=== PATIENT | male | born 1970 | race Caucasian/White ===

== ENCOUNTER 2019-02-17 23:52 | Emergency (ER) | payer BC ==
[2019-02-18 01:12] LABS: ABSOLUTE BASOPHILS # (AUTO) 0.1 10^3/uL (0.0-0.2); ABSOLUTE EOSINOPHILS # (AUTO) 0.3 10^3/uL (0.0-0.6); ABSOLUTE MONOCYTES (AUTO) 0.8 10^3/uL (0.1-1.4); ABSOLUTE NEUT (AUTO) 6.9 10^3/uL (1.7-8.2); BASOPHILS % (AUTO) 0.6 % (0-2); EOSINOPHILS % (AUTO) 3.1 % (0-6); HEMATOCRIT 47.7 % (37.9-51.0); HEMOGLOBIN 16.5 g/dL (13.5-17.0); LYMPHOCYTES % (AUTO) 19.5 % (13-45); MEAN CORPUSCULAR HEMOGLOBIN 28.2 pg (27.0-33.4); MEAN CORPUSCULAR HGB CONC 34.5 g/dL (32.0-36.0); MEAN CORPUSCULAR VOLUME 82 fl (80-97); MONOCYTES % (AUTO) 8.2 % (3-13); PLATELET COUNT 174 10^3/uL (150-450); RED BLOOD COUNT 5.85 10^6/uL (4.35-5.55); RED CELL DISTRIBUTION WIDTH 13.9 % (11.5-14.0); SEGMENTED NEUTROPHILS % (AUTO) 68.6 % (42-78); TOTAL CELLS COUNTED % (AUTO) 100 %
[2019-02-18 01:21] LABS: APPEARANCE,URINE SLIGHTLY-CLOUDY; BILIRUBIN,URINE NEGATIVE (NEGATIVE); CALCIUM OXALATE CRYSTALS,URINE MODERATE /HPF; COLOR,URINE YELLOW; GLUCOSE, URINE NEGATIVE (NEGATIVE); KETONES,URINE NEGATIVE (NEGATIVE); LEUKOCYTE ESTERASE,URINE NEGATIVE (NEGATIVE); NITRITE,URINE NEGATIVE (NEGATIVE); PROTEIN,URINE NEGATIVE (NEGATIVE); URINE SPECIFIC GRAVITY 1.017; UROBILINOGEN,URINE NEGATIVE mg/dL (<2.0)
[2019-02-18 01:28] LABS: ALANINE AMINOTRANSFERASE 98 U/L (21-72); ALBUMIN 4.7 g/dL (3.5-5.0); ALKALINE PHOSPHATASE 112 U/L (38-126); ANION GAP 13 (5-19); ASPARTATE AMINO TRANSFERASE 40 U/L (17-59); BILIRUBIN,DIRECT 0.3 mg/dL (0.0-0.4); BILIRUBIN,TOTAL 0.7 mg/dL (0.2-1.3); BLOOD UREA NITROGEN 16 mg/dL (7-20); CALCIUM 9.8 mg/dL (8.4-10.2); CARBON DIOXIDE 26 mmol/L (22-30); CHLORIDE 104 mmol/L (98-107); GLUCOSE 111 mg/dL (75-110); POTASSIUM 4.3 mmol/L (3.6-5.0); SODIUM 142.6 mmol/L (137-145); TOTAL PROTEIN 7.2 g/dL (6.3-8.2)
[2019-02-18] MEDS ORDERED: KETOROLAC TROMETHAMINE INJ/PF 30 MG/1 ML SDV IV ONE ×2 (01:54→02:28)
[2019-02-18] MEDS ORDERED: MORPHINE SULFATE 10 MG/ML INJ IV PRN (01:54)
[2019-02-18] MEDS ORDERED: NORMAL SALINE 1000 ML 1,000 ML IV ONE (01:55)
[2019-02-18] MEDS ORDERED: TAMSULOSIN HCL 0.4 MG CAP.SR.24H PO ONE (01:55)
[2019-02-18] MEDS ORDERED: ONDANSETRON HCL INJ/PF 4 MG/2 ML SDV IV ONE (01:55)
--- NOTE | 2019-02-18 02:44 | ER Document Report ---
ED General - General Chief Complaint: Possible Kidney Stone Stated Complaint: POSSIBLE KIDNEY STONE Time Seen by Provider: 02/18/19 00:36 Primary Care Provider: ZABRINA GUERRA NP [[employer]IED HE[employer] PROFESSIONAL] - Follow up as needed Notes: Patient is a 48-year-old male with a past medical history of essential hy pertension, history of kidney stones with no history of complicated kidney stones who presents with an acute onset of right flank pain radiating to his right lower and. States that it has been associated with urinary hesitancy and hematuria. Describes the pain as being abrupt in onset and progressively worsening now a severe, throbbing, constant pain to his right flank and into his right lower abdomen. States that nothing seems to improve the pain, no obvious worsening factor. States that this feels identical to history of kidney stones that he has had in the past. Denies ever requiring hospitalization or surgical intervention for kidney stone in the past. Has not had fever or constitutional symptoms. Notes mild nausea but no vomiting. TRAVEL OUTSIDE OF THE [place] IN LAST 30 DAYS: No - Related Data Allergies/Adverse Reactions: No Known Allergies Allergy (Unverified 03/14/12 19:00) Past Medical History - General Information source: Patient - Social History Smoking Status: Never Smoker Frequency of alcohol use: None Drug Abuse: None Lives with: Spouse/Significant other Family History: Reviewed & Not Pertinent Patient has suicidal ideation: No Patient has homicidal ideation: No - Past Medical History Cardiac Medical History: Reports: Hx Hypercholesterolemia, Hx Hypertension Renal/ Medical History: Denies: Hx Peritoneal Dialysis GI Medical History: Reports: Hx Gastroesophageal Reflux Disease Psychiatric Medical History: Reports: Hx Attention Deficit Hyperactivity Disorder, Hx Depression - Immunizations Immunizations up to date: Yes Hx Diphtheria, Pertussis, Tetanus Vaccination: Yes Review of Systems - Review of Systems Notes: Constitutional: Negative for fever. HENT: Negative for sore throat. Eyes: Negative for visual changes. Cardiovascular: Negative for chest pain. Respiratory: Negative for shortness of breath. Gastrointestinal: Positive for right flank pain radiating to the right lower ab domen Genitourinary: Positive for hematuria Musculoskeletal: Negative for back pain. Skin: Negative for rash. Neurological: Negative for headaches, weakness or numbness. 10 point ROS negative except as marked above and in HPI. Physical Exam - Vital signs Vitals: Temp Pulse Resp BP Pulse Ox 98.2 F 88 20 159/109 H 98 06/10/19 00:03 02/18/19 00:03 02/18/19 00:03 02/18/19 00:03 02/18/19 00:03 Interpretation: Hypertensive Notes: PHYSICAL EXAMINATION: GENERAL: Appears uncomfortable but in no overt distress HEAD: Atraumatic, normocephalic. EYES: Pupils equal round and reactive to light, extraocular movements intact, sclera anicteric, conjunctiva are normal. ENT: nares patent, oropharynx clear without exudates. Moist mucous membranes. NECK: Normal range of motion, supple without lymphadenopathy LUNGS: Breath sounds clear to auscultation bilaterally and equal. No wheezes rales or rhonchi. HEART: Regular rate and rhythm without murmurs ABDOMEN: Soft, abdomen nontender, right CVA tenderness present, normoactive bowel sounds. No guarding, no rebound. No masses appreciated. EXTREMITIES: Normal range of motion, no pitting or edema. No cyanosis. NEUROLOGICAL: No focal neurological deficits. Moves all extremities spontaneously and on command. PSYCH: Normal mood, normal affect. SKIN: Warm, Dry, normal turgor, no rashes or lesions noted. Course - Re-evaluation Re-evalutation: 02/18/19 02:30 Presents with findings consistent with acute nephrolithiasis. Urinalysis does show hematuria. Laboratory otherwise unremarkable. Pain was able to be controlled here in the emergency department. Patient is tolerating oral intake. Clinical history is not consistent with an acute abdominal aneurysm or dissection, [place], or pulmonary embolus. Urinalysis does not show findings consistent with an infected stone. Vitals have remained within normal limits. Patient will be discharged with recommendations to follow-up with urology, pain medications, and return precautions. They are in agreement with this plan and verbalized indications return to emergency department. - Vital Signs Vital signs: Temp Pulse Resp BP Pulse Ox 98.2 F 88 20 159/109 H 98 02/18/19 00:03 02/18/19 00:03 02/18/19 00:03 02/18/19 00:03 02/18/19 00:03 - Laboratory Result Diagrams: 02/18/19 01:02 02/18/19 01:02 Laboratory results interpreted by me: 02/18/19 02/18/19 02/18/19 01:02 01:02 01:02 RBC 5.85 H Glucose 111 H ALT 98 H Urine Blood LARGE H Discharge - Discharge Clinical Impression: Right kidney stone, Right flank pain Condition: Good Disposition: HOME, SELF-CARE Additional Instructions: Your symptoms should improve over the course of the next one week. If you continue to have pain for greater than one week or your pain is not controlled with the pain medications that you have been sent home with you need to return to the emergency department. Please also return if you develop fever, persistent vomiting, or any other symptoms that are concerning to you. You sh ould take ibuprofen 600 mg every 6 hours. You are also been sent home with a medication called Flomax to help pass the stone. You've been given Zofran to assist with nausea. Please follow-up with urology in the next 2-3 days. Prescriptions: Tamsulosin HCl [Flomax 0.4 mg Cap.sr] 0.4 mg PO DAILY #14 cap.sr.24h Referrals: ZABRINA GUERRA NP [ALLIED HEALTH PROFESSIONAL] - Follow up as needed
[2019-02-18] MEDS ORDERED: ONDANSETRON ODT 4 MG TAB (6 TAB/ER DISP) PO PRN (03:03)
[2019-02-18 03:16] VITALS: BP 137/85
== END 2019-02-18 03:16 | disposition home or self-care (01) ==
LOC: ER 23:52
DX: N20.0 Calculus of kidney (principal); R31.9 Hematuria, unspecified; R39.11 Hesitancy of micturition; I10 Essential (primary) hypertension; R10.9 Unspecified abdominal pain
CPT/HCPCS: 96376; 99284; 96361; 96374; 96375; 36415; 85025; 80053; 81001; J1885; J2270; J2405; J7030